=== PATIENT | female | born 1980 | race Caucasian/White ===

== ENCOUNTER 2020-08-24 02:25 | Emergency (ER) | payer MEDICAID ==
[~2020-08-24] VITALS: Ht 165.1 cm; Wt 70.8 kg
[~2020-08-24 02:25] MED LIST: LEXAPRO10 MG PO; LUNESTA1 MG; MEDROL DOSEPAK4 MG PO; MIRUD PO; PROTONIX TR40 M1 PO; SUL500; TEN25 PO; TENORMIN25 MG PO; WELLBUTRIN SR200 MG PO; WELSR PO
[2020-08-24 02:30] VITALS: Ht 165.1 cm; Wt 70.8 kg
[2020-08-24 03:09] LABS: microscopic required? NO
[2020-08-24 03:21] LABS: urine erythrocyte NEGATIVE (NEGATIVE)
[2020-08-24 03:35] LABS: CALCIUM 8.7 mg/dL (8.5-10.1); CHLORIDE SERUM 101 mmol/L (98-107); CREATININE SERUM 0.7 mg/dL (0.6-1.0); GFR1 > 60 mL/min; GLUCOSE SERUM 142 mg/dL (74-106); POTASSIUM SERUM 3.7 mmol/L (3.5-5.1); SODIUM SERUM 138 mmol/L (136-145)
[2020-08-24 03:39] LABS: ALBUMIN 3.5 g/dL (3.4-5.0); ALKALINE PHOSPHATASE 62 U/L (46-116); ALT/SGPT 12 U/L (14-59); AST/SGOT 12 U/L (15-37); BILIRUBIN TOTAL 0.25 mg/dL (0.20-1.00); LIPASE 89 IU/L (73-393); TOTAL PROTEIN, SERUM 7.1 g/dL (6.4-8.2)
[2020-08-24 03:45] LABS: BASOPHIL % 0.5 % (0-2); PLATELET COUNT 357 x10^3mcL (130-400)
[2020-08-24 06:42] VITALS: BP 126/96
== END 2020-08-24 06:42 | disposition home or self-care (01) ==
LOC: ED 02:25
PROVIDERS: Emergency Medicine
DX: K50.90 Crohn's disease, unspecified, without complications (principal); Z90.89 Acquired absence of other organs; Z90.49 Acquired absence of other specified parts of digestive tract; Z88.5 Allergy status to narcotic agent; Z88.1 Allergy status to other antibiotic agents; Z88.8 Allergy status to other drugs, medicaments and biological substances
CPT/HCPCS: J1100; J1200; J2270; J2405; J7030

== ENCOUNTER 2020-10-08 15:50 | Emergency (ER) | payer MEDICAID, SELFPAY ==
[~2020-10-08] VITALS: Ht 165.1 cm; Wt 69.4 kg
[2020-10-08 17:19] LABS: BASOPHIL % 0.3 % (0.2-1.3)
[2020-10-08 17:20] LABS: PLATELET COUNT 476 x10^3mcL (179-408); RED CELL DISTRIBUTION WIDTH 14.6 % (12.3-17.7); rbc morphology (normal/abnorm) NORMAL (NORMAL)
[2020-10-08 17:42] VITALS: Ht 165.1 cm; Wt 69.4 kg
[2020-10-08 17:56] LABS: CALCIUM 9.1 mg/dL (8.5-10.1); CARBON DIOXIDE 27.7 mmol/L (21-32); CHLORIDE SERUM 101 mmol/L (98-107); CREATININE SERUM 0.8 mg/dL (0.6-1.0); GFR1 > 60 mL/min; GLUCOSE SERUM 136 mg/dL (74-106); POTASSIUM SERUM 4.2 mmol/L (3.5-5.1); SODIUM SERUM 138 mmol/L (136-145)
[2020-10-08 18:04] LABS: ALBUMIN 3.6 g/dL (3.4-5.0); ALKALINE PHOSPHATASE 50 U/L (46-116); ALT/SGPT 8 U/L (14-59); BILIRUBIN TOTAL 0.33 mg/dL (0.20-1.00); LIPASE 118 IU/L (73-393); TOTAL PROTEIN, SERUM 7.3 g/dL (6.4-8.2)
[2020-10-08 18:44] LABS: AST/SGOT 23 U/L (15-37)
[2020-10-08 22:03] VITALS: BP 110/71
== END 2020-10-08 22:03 | disposition home or self-care (01) ==
LOC: ED 15:50
PROVIDERS: Emergency Medicine
DX: K50.90 Crohn's disease, unspecified, without complications (principal); Z90.49 Acquired absence of other specified parts of digestive tract; Z90.89 Acquired absence of other organs; Z98.890 Other specified postprocedural states; Z88.1 Allergy status to other antibiotic agents; Z88.6 Allergy status to analgesic agent; Z88.8 Allergy status to other drugs, medicaments and biological substances
CPT/HCPCS: J2270; J2405; J2930; J3010; J7030

== ENCOUNTER 2020-12-02 12:57 | Emergency (ER) | payer MEDICAID ==
[~2020-12-02] VITALS: Ht 165.1 cm; Wt 69.9 kg
[~2020-12-02 12:57] MED LIST changes: +LIPI10 PO; +SULFASALAZINE500 M1 PO
[2020-12-02 13:01] VITALS: Ht 165.1 cm; Wt 69.9 kg
[2020-12-02 14:11] LABS: microscopic required? NO
[2020-12-02 14:17] LABS: UA SPECIFIC GRAVITY >=1.030 (1.005-1.035); urine erythrocyte NEGATIVE (NEGATIVE)
[2020-12-02 15:07] LABS: BASOPHIL % 0.1 % (0.2-1.3)
[2020-12-02 15:08] LABS: PLATELET COUNT 465 x10^3mcL (179-408); RED CELL DISTRIBUTION WIDTH 15.2 % (12.3-17.7)
[2020-12-02 15:19] LABS: CARBON DIOXIDE 26.8 mmol/L (21-32); CREATININE SERUM 1.4 mg/dL (0.6-1.0); POTASSIUM SERUM 3.4 mmol/L (3.5-5.1)
[2020-12-02 15:24] LABS: ALBUMIN 3.6 g/dL (3.4-5.0); BILIRUBIN TOTAL 0.2 mg/dL (0.20-1.00); TOTAL PROTEIN, SERUM 7.1 g/dL (6.4-8.2)
[2020-12-02 17:08] VITALS: BP 122/86
== END 2020-12-02 17:08 | disposition home or self-care (01) ==
LOC: ED 12:57
PROVIDERS: Student in an Organized Health Care Education/Training Program
DX: K58.0 Irritable bowel syndrome with diarrhea (principal); Z88.6 Allergy status to analgesic agent; Z88.8 Allergy status to other drugs, medicaments and biological substances
CPT/HCPCS: J2405